=== PATIENT | male | born 1965 | race Caucasian/White ===

== ENCOUNTER 2020-07-08 08:32 | Emergency (ER) | payer BC ==
[~2020-07-08] VITALS: Ht 177.8 cm; Wt 79.4 kg
[2020-07-08 08:39] VITALS: BP_SYST 149
[2020-07-08] MEDS ORDERED: ONDANSETRON 4 MG ODT TAB PO ONE (08:45)
[2020-07-08] MEDS ORDERED: DIPH-TET-PERTUS Vaccine 0.5 ML VIAL (ADACEL) I.M. ONE (08:45)
[2020-07-08] MEDS ORDERED: HYDROcodone/ACETAMIN 5-325 MG TAB (NORCO/ VICODIN) PO ONE (08:45)
[2020-07-08] MEDS ORDERED: HYDROmorphone 1 MG INJ. 1 MG/ML AMPUL IM ONE (09:45)
[2020-07-08] MEDS ORDERED: MORPHINE 4 MG/ML INJ. SYRINGE IM ONE (10:00)
[2020-07-08] MEDS ORDERED: HYDROmorphone 1 MG INJ. 1 MG/ML AMPUL ONE (10:19)
[2020-07-08 10:38] VITALS: BP_SYST 149
== END 2020-07-08 10:31 | disposition home or self-care (01) ==
LOC: SED 08:32
DX: S01.01XA Laceration without foreign body of scalp, initial encounter (principal); M54.2 Cervicalgia; V43.52XA Car driver injured in collision with other type car in traffic accident, initial encounter; Y93.89 Activity, other specified; Y92.413 State road as the place of occurrence of the external cause; Y99.8 Other external cause status
CPT/HCPCS: 70450; 72125; 73030; 90471; 90715; 99285; J1170; J7030; Q0162